=== PATIENT | female | born 1980 | race Caucasian/White ===

== ENCOUNTER 2017-07-06 07:52 | Inpatient (IN) | payer OTHER ==
[2017-06-23 13:03] VITALS: BMI 19.5
--- NOTE | 2017-06-27 14:03 | HP ---
Admitting History and Physical - Primary Care Physician PCP: Eliel Charles - Admission Chief Complaint: high risk for breast cancer History of Present Illness: Patient is a 36 yo female who is high risk for breast cancer secondary to family history of breast cancer and personal h/o BRCA 2 positive status. Patient had a normal mammo done 02/01/2017 and an MRI done 06/13/2017 which was wnl. Patient is now presenting for prophylactic mastectomy with reconstruction. History Source: Patient Limitations to Obtaining History: No Limitations - Past Medical History ...LMP: 05/28/17 ...: No - Past Surgical History Past Surgical History: Yes: Appendectomy - Smoking History Smoking history: Never smoked - Alcohol/Substance Use Hx Alcohol Use: No Home Medications - Allergies Allergies/Adverse Reactions: Allergies Allergy/AdvReac Type Severity Reaction Status Date / Time cefaclor [From Ceclor] Allergy Rash Verified 06/23/17 12:49 cephalexin [From Keflex] Allergy Rash Verified 06/23/17 12:49 Penicillins Allergy Rash Verified 06/23/17 12:49 medroxyprogesterone AdvReac Verified 06/27/17 14:12 [From Depo-Provera] - Home Medications Home Medications: Ambulatory Orders NK [No Known Home Medication] 06/23/17 Family Disease History - Family Disease History Family Disease History: CA: Grandparent (maternal-breast cancer ), Other: Mother (BRCA 2 positive) Other Family History: maternal greast aunts x 3-breast cancer Review of Systems - Review of Systems Constitutional: reports: No Symptoms Cardiovascular: reports: No Symptoms Respiratory: reports: No Symptoms Physical Examination Constitutional: Yes: Well Nourished Breast(s): Yes: Other (Symmetrical A cup breasts without suspicious masses or adenopathy noted bilaterally.) Problem List - Problems (1) Family history of breast cancer Code(s): Z80.3 - FAMILY HISTORY OF MALIGNANT NEOPLASM OF BREAST (2) BRCA gene mutation positive Code(s): Z15.01 - GENETIC SUSCEPTIBILITY TO MALIGNANT NEOPLASM OF BREAST; Z15.09 - GENETIC SUSCEPTIBILITY TO OTHER MALIGNANT NEOPLASM Assessment/Plan Plan: Bilateral mastectomy with implant reconstruction.
[2017-07-06] MEDS ORDERED: PROPOFOL 20 ML ONE ×11 (10:21→13:12)
[2017-07-06] MEDS ORDERED: SUCCINYLCHOLINE CHLORIDE 200 MG/10 ML VIAL ONE (10:21)
[2017-07-06] MEDS ORDERED: fentaNYL CITRATE 250 MCG/5 ML VIAL ONE (10:21)
[2017-07-06] MEDS ORDERED: ROCURONIUM BROMIDE 50 MG/5 ML VIAL ONE ×2 (10:21→12:41)
[2017-07-06] MEDS ORDERED: ePHEDrine SULFATE 50 MG/1 ML AMPULE ONE (10:21)
[2017-07-06] MEDS ORDERED: MIDAZOLAM HCL 2 MG/2 ML SINGLE DOSE VIAL ONE ×4 (10:22→10:23)
[2017-07-06] MEDS ORDERED: DEXAMETHASONE SOD PHOSPHATE/PF 10 MG/ML SDV ONE (10:23)
[2017-07-06] MEDS ORDERED: BUPIVACAINE HCL/PF 2.5 MG/ML - 30 ML VIAL IJ ONE (10:23)
[2017-07-06] MEDS ORDERED: HALOPERIDOL LACTATE 5 MG/ML ONE (10:24)
[2017-07-06] MEDS ORDERED: ONDANSETRON 4 MG/2 ML VIAL IVPUSH PRN ×2 (12:32→14:25)
[2017-07-06] MEDS ORDERED: ACETAMINOPHEN 325 MG TABLET (FP) PO PRN (12:32)
[2017-07-06] MEDS ORDERED: ZOLPIDEM TARTRATE 5 MG TABLET PO PRN (12:32)
[2017-07-06] MEDS ORDERED: NEOSTIGMINE METHYLSULFATE 0.5 MG/ML - 10 ML MDV ONE (13:48)
[2017-07-06] MEDS ORDERED: KETOROLAC TROMETHAMINE 30 MG/1 ML VIAL ONE (13:52)
[2017-07-06] MEDS ORDERED: GLYCOPYRROLATE 0.2 MG/1 ML VIAL ONE (13:53)
[2017-07-06] MEDS ORDERED: ONDANSETRON 4 MG/2 ML VIAL ONE (14:22)
[2017-07-06] MEDS ORDERED: oxyCODONE HCL 5 MG TABLET PO PRN ×2 (14:25)
[2017-07-06] MEDS ORDERED: PROMETHAZINE HCL 25 MG/1 ML VIAL IVPUSH PRN (14:25)
[2017-07-06] MEDS ORDERED: ACETAMINOPHEN 325 MG TABLET (FP) ONE (14:53)
[2017-07-06] MEDS ORDERED: diazePAM 2 MG TABLET ONE (14:53)
[2017-07-06] MEDS: ACETAMINOPHEN 325 MG TABLET (FP) PO SCH ×2 (14:55→22:21)
[2017-07-06] MEDS: diazePAM 2 MG TABLET PO SCH ×2 (14:55→22:21)
[2017-07-06] MEDS: DEXTROSE 5%-0.45% SALINE 1,000 ML IV SCH (15:59)
[2017-07-06] MEDS: LACTATED RINGERS SOLUTION 1,000 ML IV SCH (15:59)
--- NOTE | 2017-07-06 16:03 | OP ---
DATE OF OPERATION: 07/06/2017 PREOPERATIVE DIAGNOSES: High risk for breast cancer. BRCA2 positive. POSTOPERATIVE DIAGNOSES: High risk for breast cancer. BRCA2 positive. PROCEDURES: Bilateral nipple-sparing mastectomy, through an inframammary approach, with bilateral direct-implant reconstruction. ANESTHESIA: General endotracheal anesthesia. PRIMARY SURGEON: Maggie Charles MD STREET CLEANER: Liza Simons, physician showroom sales assistant PRIMARY SURGEON: For the bilateral direct implant reconstruction with AlloDerm was Maggie Fierro MD. COMPLICATIONS: There were no complications. Briefly, the patient is a 37-year-old, premenopausal, white female of [place] descent, with a family history with her maternal grandmother who from breast cancer in her 40s and three paternal great aunts with breast cancer. The patient's mother and the patient herself tested BRCA2 positive with a deletion GT mutation. She has been getting routine mammography and MRIs, which have been negative, and was seen in consultation regarding prophylactic risk-reduction mastectomy. She decided to go forward with the procedure. Was seen by Dr. Fierro for reconstruction. The patient was brought in for the procedure, on July 06, 2017. DESCRIPTION OF PROCEDURE: In the holding area, verification was made and informed consent was obtained. She was marked preoperatively by Dr. Fierro. The patient was then brought into the operating room and laid on the OR table in the supine position. Venodynes were placed on the lower extremities. She received a gram of vancomycin and clindamycin, prior to incision. She underwent general endotracheal anesthesia. Both breasts were sterilely prepped and draped in the usual fashion. She did receive a prepectoral nerve block for pain control postoperatively. Inframammary incisions were marked out bilaterally about 8 cm in length in the inframammary folds of both breasts. The left mastectomy was first performed. An incision was made, and the skin edges were everted, the breast was retracted inferiorly using Washburn clamps. The skin flap was raised using the Peak radiofrequency device superiorly to the level of the clavicle, and medially to the level of the sternum, laterally to the level of the latissimus, and inferiorly below the level of the inframammary fold. The breast was taken down off the pectoralis major muscle from [id number] and completely removed intact. It was oriented with a long lateral, short superior suture and weighed to allow for appropriate cosmetic result. A retroareolar biopsy was taken underneath the left nipple-areolar complex and sent for frozen section, did have some atypia, but no cancer, so the left nipple was spared. Hemostasis was achieved and the wound was copiously irrigated with warm sterile saline. The breast was placed in formalin and sent to Pathology as specimen. At this point, the right mastectomy was performed, again through an inframammary approach, 8 cm in length, symmetrical to the left incision. Again, the skin edges were everted and the breast was retracted inferiorly using Basilio clamps. The skin flap was raised using the Peak radiofrequency device superiorly to the level of the clavicle, and medially to the level of the sternum, laterally to the level of the latissimus, and inferiorly below the level of the inframammary fold. The breast was taken down off the pectoralis major muscle from [id number] and completely removed intact. It was oriented with a long lateral, short superior suture and weighed to allow for appropriate cosmetic result. Hemostasis was achieved using electrocautery and the wound was copiously irrigated with warm sterile saline. A right retroareolar biopsy was taken, sent for frozen section, came back negative, so the right nipple was spared, as well. At this point, Dr. Fierro became the primary surgeon and performed bilateral subpectoral direct-implant reconstruction with AlloDerm. Two Ronn drains were placed around each implant and brought out through separate stab incisions on the lateral skin flaps and secured in place using a 3-0 nylon. All wounds were closed by Plastic Surgery using interrupted 3-0 deep dermal PDS suture and a running 4-0 subcuticular Biosyn suture. Mastisol and Steri-Strips were applied over the wound. The Ronn drains were placed on TY self-bulb suction. We did use the SPY skin perfusion device at the end of the mastectomy, as well as at the end of the reconstruction, and she did have some mild decreased blood flow around the nipples bilaterally, but was adequate to save the nipples. All sponge and needle counts were correct at the end of the case and estimated blood loss was about 50 mL. She was hemodynamically stable throughout. The patient was extubated at the end of the case, and brought to the postanesthesia care unit in stable condition, and will be admitted postoperatively for pain management and wound management. MAGGIE CHARLES M.D. [id number]
[2017-07-06] MEDS ORDERED: PT OWN MED DRAWER 7, Y5N ONE (17:14)
[2017-07-06] MEDS: CLINDAMYCIN 300 MG PREMIX IVPB 300 MG/50 ML BAG IVPB SCH (17:32)
[2017-07-06] MEDS: oxyCODONE HCL 10 MG SUSTAINED ACTING TABLET PO SCH (22:21)
[2017-07-06] MEDS: GABAPENTIN 300 MG CAPSULE (FP) PO SCH (22:21)
[2017-07-06] MEDS: SENNOSIDES 8.6MG TABLET (FP) PO SCH (22:21)
[2017-07-07] MEDS: CLINDAMYCIN 300 MG PREMIX IVPB 300 MG/50 ML BAG IVPB SCH ×3 (02:13→17:39)
[2017-07-07] MEDS: ACETAMINOPHEN 325 MG TABLET (FP) PO SCH ×4 (05:00→21:14)
[2017-07-07] MEDS: diazePAM 2 MG TABLET PO SCH ×3 (06:25→22:23)
[2017-07-07 08:45] LABS: HEMATOCRIT 34.6 % (32.4-45.2); HEMOGLOBIN 12.1 GM/dl (10.7-15.3); MCH 32.4 pg (25.7-33.7); MCHC 35.1 g/dl (32.0-36.0); MEAN CELL VOLUME 92.3 fl (80-96); MEAN PLT VOLUME 10.3 fl (7.5-11.1); PLATELET COUNT 219 K/MM3 (134-434); RBC 3.75 M/mm3 (3.60-5.2); RDW 11.7 % (11.6-15.6); WHITE BLOOD COUNT 7.7 K/mm3 (4.0-10.8)
--- NOTE | 2017-07-07 08:59 | PN ---
Progress Note, Physician Chief Complaint: BRCA positive S/P bilateral nipple sparing total mastectomies with implant and alloderm reconstruction History of Present Illness: patient is eating and pain controlled with current regimen,ready for OOB this am, no nausea or vomiting - Current Medication List Current Medications: Active Medications Acetaminophen (Tylenol -) 650 mg PO Q6H [facility] Stop: 07/09/17 14:59 Last Admin: 07/07/17 05:00 Dose: 650 mg Diazepam (Valium -) 2 mg PO Q8H [facility] Last Admin: 07/07/17 06:25 Dose: 2 mg Gabapentin (Neurontin -) 300 mg PO BID [facility] Last Admin: 07/06/17 22:21 Dose: 300 mg Dextrose/Sodium Chloride (D5-1/2ns -) 1,000 mls @ 100 mls/hr IV ASDIR [facility] Last Admin: 07/06/17 15:59 Dose: Not Given Clindamycin Phosphate (Cleocin 300 Mg Premix Ivpb) 300 mg in 50 mls @ 100 mls/ hr IVPB Q8H-IV [facility] Last Admin: 07/07/17 02:13 Dose: 100 mls/hr Lactated Ringer's (Lactated Ringers Solution) 1,000 mls @ 75 mls/hr IV ASDIR [facility] Last Admin: 07/06/17 15:59 Dose: Not Given Ondansetron HCl (Zofran Injection) 4 mg IVPUSH Q6H PRN PRN Reason: NAUSEA AND/OR VOMITING Oxycodone HCl (Roxicodone -) 5 mg PO Q3H PRN PRN Reason: PAIN LEVEL 1-5 Oxycodone HCl (Roxicodone -) 10 mg PO Q3H PRN PRN Reason: PAIN LEVEL 6-10 Oxycodone HCl (Oxycontin -) 10 mg PO BID [facility] Stop: 07/09/17 14:26 Last Admin: 07/06/17 22:21 Dose: 10 mg Senna (Senna -) 1 tab PO BID [facility] Last Admin: 07/06/17 22:21 Dose: 1 tab Zolpidem Tartrate (Ambien -) 5 mg PO HS PRN PRN Reason: Insomnia - Objective Vital Signs: Vital Signs Temperature 98.6 F 07/07/17 06:00 Pulse Rate 86 07/07/17 06:00 Respiratory Rate 18 07/07/17 06:00 Blood Pressure 104/62 07/07/17 06:00 O2 Sat by Pulse Oximetry (%) 95 07/07/17 06:00 Constitutional: Yes: No Distress Breast(s): Yes: Other (bilateral skin flaps viable minimal echymosis incision intact no signs of infection prateek drains function well) Problem List - Problems (1) BRCA gene mutation positive Code(s): Z15.01 - GENETIC SUSCEPTIBILITY TO MALIGNANT NEOPLASM OF BREAST; Z15.09 - GENETIC SUSCEPTIBILITY TO OTHER MALIGNANT NEOPLASM Assessment/Plan continue IV antibiotic cont pain management plan spirometry SCD ready for discharge tomorrow cbc pending
[2017-07-07] MEDS ORDERED: PT OWN MED DRAWER 7, Y5N ONE (09:42)
[2017-07-07] MEDS: oxyCODONE HCL 10 MG SUSTAINED ACTING TABLET PO SCH ×2 (10:03→21:51)
[2017-07-07] MEDS: GABAPENTIN 300 MG CAPSULE (FP) PO SCH ×2 (10:03→21:51)
[2017-07-07] MEDS: SENNOSIDES 8.6MG TABLET (FP) PO SCH ×2 (10:03→21:51)
--- NOTE | 2017-07-07 11:01 | DS ---
Physical Examination Vital Signs: Vital Signs Temperature 98.6 F 07/07/17 06:00 Pulse Rate 86 07/07/17 06:00 Respiratory Rate 18 07/07/17 06:00 Blood Pressure 104/62 07/07/17 06:00 O2 Sat by Pulse Oximetry (%) 95 07/07/17 06:00 Constitutional: Yes: No Distress Breast(s): Yes: Other (flaps viable incision intact mild echymosis prateek drains functionng well) Labs: CBC, BMP 07/07/17 08:00 Discharge Summary Reason For Visit: GENETIC SUSCEPTIBILITY Current Active Problems BRCA gene mutation positive (Acute) Condition: Good - Instructions Diet, Activity, Other Instructions: Post Operative Instructions - [facility] We hope your recovery will be uneventful. For those of you who have been given general anesthesia, there is a possibility you might have some lightheadedness and possibly nausea. It is important that each patient, especially those who have had general anesthesia, follow these instructions, please: 1. Do NOT operate a motor vehicle for 24 hours. 2. Do NOT drink any alcoholic beverages for 24 hours. 3. Do NOT take any sedatives, narcotics, or tranquilizers for 24 hours unless specifically ordered by your surgeon. 4. Do NOT undertake any strenuous exercise or outside activity for 24 hours unless specifically permitted by your surgeon. 5. Eat light foods that are easy to digest. If you have any problems with nausea and vomiting, lie down and rest. If it continues, call your surgeon. 6. Call your surgeon AT ONCE if you have problems with: a. Bleeding b. Urinating c. Excessive pain or drainage d. Numbness If any problems occur, call your physician first. If you cannot reach him/her, call the Ambulatory Surgery Unit at [phone], or the Emergency Room at . Follow up with Drs. Charles / Yves in 7 days. Medication: Vicodin E-S OR Percocet 1-2 tablets every 4-6 hrs as needed for 5-7 days. Wound Care: Keep wound dry and clean for 48 hours. You may remove the dressing after 48 hours and may shower. Keep steri-strips in place until follow-up appointment No heavy lifting or strenuous activities. BREAST SURGERY INSTRUCTIONS Nic Charles M.D., KIT Charles M.D., FACS Ana Luisa Marinelli M.D., FACS 1. Please call the office at to make a follow up appointment with your surgeon. This number can be also used for any urgent issues you may have. 2. Call us immediately if any of the following occur: *Bleeding from the incision or drain site (a small amount is normal) *Fever or chills *Redness and worsening tenderness around the surgical site *Drainage of pus or fluid from the incision or drain site 3. You may change the surgical dressing two (2) days after your surgery, and may shower then. If you have drains, you may shower after they have been removed, until then take a sponge bath. 4. It is normal for there to be some bruising and tenderness around the surgical site, and the breast may also be firm in this area. 5. Please wear a comfortable bra (sports or surgical bra) all day and all night until your first follow-up visit with your surgeon. 6. The pain medicine you have been prescribed may make you constipated; make sure you drink plenty of water. You may use an over the counter laxative if needed. 7. You may resume your normal diet after surgery, although you may want to avoid rich foods for the first twenty-four (24) hours after surgery. Alcoholic drinks should be avoided while taking the prescribed pain medicine. 8. You may resume normal activities as long as there is no discomfort, but do not do upper body exercises until after your follow-up appointment. Do not lift anything heavier than a large phone book. You may resume driving once you have stopped taking the prescribed pain medicine and feel comfortable doing arm movements. No shower , Milk and record prateek output two to three times daily. Wear bra Referrals: Eliel Charles MD [Staff Physician] - Rob Fierro MD [Staff Physician] - Disposition: HOME - Home Medications Comprehensive Discharge Medication List: Ambulatory Orders Ciprofloxacin HCl [Cipro] 500 mg PO BID #20 tablet 07/07/17 Fluconazole [Diflucan] 150 mg PO ONCE #1 tablet 07/07/17 Oxycodone HCl/Acetaminophen [Percocet 5-325 mg Tablet] 1 - 2 tab PO Q6H PRN #30 tab MDD 6 07/07/17
--- NOTE | 2017-07-07 13:02 | PN ---
Progress Note (short form) - Note Progress Note: S: Pt. sitting, eating lunch without complaints. O: VAS 0/10 A/P: pod #1 s/p bilateral mastectomy with reconstruction 1. continue pain meds as needed
[2017-07-07] MEDS: LACTATED RINGERS SOLUTION 1,000 ML IV SCH (14:03)
[2017-07-07] MEDS: DEXTROSE 5%-0.45% SALINE 1,000 ML IV SCH (14:03)
[2017-07-08] MEDS: CLINDAMYCIN 300 MG PREMIX IVPB 300 MG/50 ML BAG IVPB SCH ×2 (02:39→09:46)
[2017-07-08] MEDS: ACETAMINOPHEN 325 MG TABLET (FP) PO SCH ×2 (02:41→08:42)
[2017-07-08] MEDS: diazePAM 2 MG TABLET PO SCH (06:52)
[2017-07-08 07:07] VITALS: BP 100/69; PULSE 75; TEMP 98
--- NOTE | 2017-07-08 09:43 | PN ---
Progress Note, Physician Chief Complaint: High risk for breast cancer BRCA2+ History of Present Illness: The patient was found to be BRCA2+ and decided on undergoing bilateral prophylactic mastectomies which was performed on 07/06/17. She was admitted postoperatively for postoperative pain control and wound management. - Current Medication List Current Medications: Active Medications Acetaminophen (Tylenol -) 650 mg PO Q6H [facility] Stop: 07/09/17 14:59 Last Admin: 07/08/17 08:42 Dose: 650 mg Diazepam (Valium -) 2 mg PO Q8H [facility] Last Admin: 07/08/17 06:52 Dose: 2 mg Gabapentin (Neurontin -) 300 mg PO BID [facility] Last Admin: 07/07/17 21:51 Dose: 300 mg Dextrose/Sodium Chloride (D5-1/2ns -) 1,000 mls @ 100 mls/hr IV ASDIR [facility] Last Admin: 07/07/17 14:03 Dose: Not Given Clindamycin Phosphate (Cleocin 300 Mg Premix Ivpb) 300 mg in 50 mls @ 100 mls/ hr IVPB Q8H-IV [facility] Last Admin: 07/08/17 02:39 Dose: 100 mls/hr Lactated Ringer's (Lactated Ringers Solution) 1,000 mls @ 75 mls/hr IV ASDIR [facility] Last Admin: 07/07/17 14:03 Dose: Not Given Ondansetron HCl (Zofran Injection) 4 mg IVPUSH Q6H PRN PRN Reason: NAUSEA AND/OR VOMITING Oxycodone HCl (Roxicodone -) 5 mg PO Q3H PRN PRN Reason: PAIN LEVEL 1-5 Last Admin: 07/08/17 02:56 Dose: 5 mg Oxycodone HCl (Roxicodone -) 10 mg PO Q3H PRN PRN Reason: PAIN LEVEL 6-10 Oxycodone HCl (Oxycontin -) 10 mg PO BID [facility] Stop: 07/09/17 14:26 Last Admin: 07/07/17 21:51 Dose: 10 mg Senna (Senna -) 1 tab PO BID [facility] Last Admin: 07/07/17 21:51 Dose: 1 tab Zolpidem Tartrate (Ambien -) 5 mg PO HS PRN PRN Reason: Insomnia - Objective Vital Signs: Vital Signs Temperature 98.0 F 07/08/17 06:00 Pulse Rate 75 01/20/18 06:00 Respiratory Rate 19 07/08/17 06:00 Blood Pressure 100/69 07/08/17 06:00 O2 Sat by Pulse Oximetry (%) 98 07/07/17 22:15 Constitutional: Yes: Well Nourished, No Distress, Calm Eyes: Yes: WNL HENT: Yes: Atraumatic, Normocephalic Neck: Yes: WNL Respiratory: Yes: Regular, CTA Bilaterally Gastrointestinal: Yes: Normal Bowel Sounds, Soft ...Rectal Exam: Yes: Deferred Genitourinary: Yes: WNL Breast(s): Yes: Other (Mastecomy wounds clean, dry, and intact. Drains functioning well. Skin flaps warm and viable.) Musculoskeletal: Yes: WNL Extremities: Yes: WNL Wound/Incision: Yes: Clean/Dry, Well Approximated Neurological: Yes: Alert, Oriented ...Motor Strength: WNL Psychiatric: Yes: WNL Labs: CBC, BMP 07/07/17 08:00 Problem List - Problems (1) BRCA gene mutation positive Assessment/Plan: The patient is doing well POD#2 s/p bilateral prophylactic nipple sparing mastectomies with direct to implant reconstruction with alloderm. Her wounds are clean, dry, and intact and skin flaps viable with functioning drains. She has good pain control and is stable for discharge today. Home on cipro antibiotics and percocet for pain. Follow up with Drs. Charles and Vadim in 1 week. Code(s): Z15.01 - GENETIC SUSCEPTIBILITY TO MALIGNANT NEOPLASM OF BREAST; Z15.09 - GENETIC SUSCEPTIBILITY TO OTHER MALIGNANT NEOPLASM
[2017-07-08] MEDS: GABAPENTIN 300 MG CAPSULE (FP) PO SCH (09:45)
[2017-07-08] MEDS: oxyCODONE HCL 10 MG SUSTAINED ACTING TABLET PO SCH (09:45)
[2017-07-08] MEDS: SENNOSIDES 8.6MG TABLET (FP) PO SCH (09:45)
--- NOTE | 2017-07-08 15:56 | OP ---
DATE OF OPERATION: 07/06/2017 SURGEON: Maggie Fierro MD PREOPERATIVE DIAGNOSIS: Bilateral acquired chest wall deformity status post bilateral mastectomy. PROCEDURE: 1. Right immediate breast reconstruction utilizing immediate insertion of silicone breast implant and AlloDerm reconstruction. 2. Left immediate breast reconstruction utilizing immediate insertion of silicone breast implant and AlloDerm reconstruction. 3. Intravenous injection of indocyanine green dye and intraoperative diagnostic evaluation of non-coronary intraoperative fluorescein vascular angiography x 2. SURGEON: Dr. Mary Anne Fierro ANESTHESIA: GENERAL OPERATIVE PROCEDURE IN DETAIL: The patient was taken to the operating room. After induction of general anesthesia in the supine position, both arms were extended and padded. Venodyne boots were placed. The entire chest wall was painted with ChloraPrep solution over its entire extent, and sterile drapes were placed in the usual fashion. The markings, which had been made in the standing position preoperatively, were reoutlined with the patient's knowledge. Time-out procedure was performed. Attention was turned by Dr. Charles to the mastectomies. Bilateral inframammary incisions were made and Dr. Charles performed mastectomies. This will be dictated under separate cover. Upon completion of the mastectomies, the wounds were copiously irrigated and attention was turned to the right breast. A subpectoral dissection was begun on the right breast, superiorly from the second rib, medially to the sternal fibers, and down to the inframammary fold, elevating the pectoralis major muscle from its insertion. At this point, an 8.0 x 16.0 sheet of AlloDerm was brought into the field and sutured superiorly along the pectoralis major muscle after rehydration. This was carried along the lateral mammary fold and down the side of the breast reconstruction. At this point, she had implants placed of Natrelle Inspira SoftTouch breast implants, style SSF 415 mL volume bilaterally. The left breast tissue removed was 121 gm, and the right breast approximately 141 gm. This implant was placed and then sutured with 3-0 Vicryl suture continued along the inframammary fold, completely covering the implant itself. The exact same procedure was carried out symmetrically on the opposite breast, also placing a Natrelle Inspira SoftTouch breast implants, style SSF 415 mL volume implant in the same subpectoral pocket. Good symmetry was seen in the sitting position. After the implants were in place, the patient was injected with 10 mL of Isocyanide green dye and the Spy imaging system was brought into the field. She had Spy intraoperative angiogram which showed slight decreased blood flow to the left nipple-areolar complex intraoperatively. The skin flowed to the right and left breasts and the nipple areolar complex, and the entire skin flaps were evaluated and seen to be viable with good blood flow. She had AlloDerm 2 sheets contour medium perforated AlloDerm placed bilaterally. Two Ulises-Butler drains were brought out through separate stab wounds laterally. The Smart Infuser pump catheter was inserted medially and into the subpectoral position. Both wounds were closed symmetrically using 3-0 PDS suture on the deep tissue, 3-0 in a deep dermal fashion, and 4-0 in a subcuticular fashion. Both wounds were dressed sterilely with Mastisol and Steri-Strips with a surgical bra and a compression strap. The patient tolerated the procedure well. She was awakened, extubated and transferred to the recovery room in satisfactory condition. The executive assistant to president was present during the entire portion of the operation and closure. MAGGIE FIERRO M.D. [id number]
--- NOTE | 2017-07-11 16:10 | PATH ---
Surgical Pathology Report Patient Name: RANGEL THOMAS Med. Rec. #: [id number] /Age/Gender: 1980 (Age: 37) / F Account: [id number] Location: [facility] MED[facility] Taken: 07/06/2017 Received: 07/06/2017 Reported: 07/11/2017 Physicians: Eliel Charles M.D. Specimen(s) Received A: RIGHT RETROAREOLAR BIOPSY. FS B: LEFT RETROAREOLAR BIOPSY. FS C: RIGHT MASTECTOMY D: LEFT MASTECTOMY Clinical History Bilateral prophylactic mastectomy, BRCA+ Intraoperative Consult Diagnosis A. Right retroareolar biopsy, frozen section: Negative for malignancy. B. Left retroareolar biopsy, frozen section: Focal atypical ductal hyperplasia (ADH). Dulce Tavera M.D., 07/06/17. Final Diagnosis A. RETROAREOLA, RIGHT, BIOPSY (FS): BENIGN BREAST TISSUE. NEGATIVE FOR MALIGNANCY. B. RETROAREOLA, LEFT, BIOPSY (FS): BENIGN BREAST TISSUE. (SEE NOTE) Note: No atypia/atypical ductal hyperplasia is identified on permanent sections. C. BREAST, RIGHT, NIPPLE-SPARING MASTECTOMY: BENIGN BREAST TISSUE. D. BREAST, LEFT, NIPPLE-SPARING MASTECTOMY: BENIGN BREAST TISSUE SHOWING PROLIFERATIVE FIBROCYSTIC CHANGES. Electronically Signed Maria A Tavera M.D. Gross Description A. Received fresh for frozen section labeled "right retroareolar biopsy," is a 0.6 x 0.4 x 0.2 cm portion of red and pink soft tissue. A frozen section is performed on the tissue. The frozen section residue is entirely submitted in one cassette. B. Received fresh for frozen section labeled "left retroareolar biopsy," is a 0.5 x 0.4 x 0.2 cm portion of red and pink soft tissue. A frozen section is performed on the tissue. The frozen section residue is entirely submitted in one cassette. C. Received in formalin, labeled "right mastectomy 141 g," is a 13.0 x 11.0 x 1.6 cm. right mastectomy specimen with a short suture marking the superior aspect and a long suture marking the lateral aspect of the specimen, per the surgeon. There is no skin or nipple present. The deep margin is inked black and the anterior soft tissue margin is inked blue. The specimen is serially sectioned from lateral to medial. Sectioning reveals abundant dense, white, firm fibrous tissue. Secondary School Teacher sections are submitted in 14 cassettes as follows: 1-3-upper outer quadrant; 4-6-lower outer quadrant; 7-9-upper inner quadrant; 10-12-lower inner quadrant; 13-anterior soft tissue margin; 14-deep margin. D. Received in formalin, labeled "left mastectomy 121 g," is a 10.8 x 9.0 x 2.8 cm. left mastectomy specimen with a short suture marking the superior aspect and a long suture marking the lateral aspect of the specimen, per the surgeon. There is no skin or nipple present. The deep margin is inked black and the anterior soft tissue margin is inked blue. The specimen is serially sectioned from medial to lateral. Sectioning reveals abundant dense, white, firm fibrous tissue. Secondary School Teacher sections are submitted in 15 cassettes as follows: 1-4-upper outer quadrant; 5-7-lower outer quadrant; 8-10-upper inner quadrant; 11-13-lower inner quadrant; 14-anterior soft tissue margin; 15-deep margin. Time to formalin fixation: 40 minutes Total formalin fixation time: Approximately 34 hours. 07/07/2017 [facility]07/07/2017
== END 2017-07-08 12:30 | disposition home or self-care (01) | DRG 585 ==
LOC: FM/S 07:52 → EDBD 09:30 → FM/S 15:28
PROVIDERS: ADMIT Surgery Surgical Oncology; ATTEND Surgery Surgical Oncology
PROC: 0HTV0ZZ Resection of Bilateral Breast, Open Approach (ICD-10-PCS; principal; 2017-07-06 11:22)
PROC: 0HUV0JZ Supplement Bilateral Breast with Synthetic Substitute, Open Approach (ICD-10-PCS; 2017-07-06 11:22)
DX: Z40.01 Encounter for prophylactic removal of breast (principal); Z15.01 Genetic susceptibility to malignant neoplasm of breast; M95.4 Acquired deformity of chest and rib
CPT/HCPCS: 36415; 84703; 85027; 94010; 94760

== ENCOUNTER 2020-02-06 10:56 | Day surgery (SDC) | payer OTHER ==
[2020-02-03 12:05] VITALS: BMI 19.5
[2020-02-06] MEDS ORDERED: BUPIVACAINE HCL/PF 0.25% (2.5MG/ML) 10 ML VIAL ONE (11:39)
[2020-02-06] MEDS ORDERED: SODIUM CHLORIDE 0.9% P/F 10 ML VIAL IJ ONE (11:39)
[2020-02-06] MEDS ORDERED: GENTAMICIN SO4 80 MG/2 ML VIAL ONE ×2 (11:42→12:51)
[2020-02-06] MEDS ORDERED: ceFAZolin SODIUM 1 GM VIAL ONE (11:42)
[2020-02-06] MEDS ORDERED: LIDOCAINE HCL/PF 2% SDV 5ML VIAL ONE ×2 (11:57→12:26)
[2020-02-06] MEDS ORDERED: PROPOFOL 20 ML ONE ×5 (11:57→12:24)
[2020-02-06] MEDS ORDERED: EPHEDRINE SULFATE/0.9% NACL/PF 50 MG/10 ML SYRINGE NR ONE (11:58)
[2020-02-06] MEDS ORDERED: ROCURONIUM BROMIDE 50 MG/5 ML SYRINGE ONE (11:58)
[2020-02-06] MEDS ORDERED: SUCCINYLCHOLINE CHLORIDE 200 MG/10 ML SYRINGE ONE (11:58)
[2020-02-06] MEDS ORDERED: BUPIVACAINE LIPOSOME/PF (EXPAREL) 266 MG/20 ML VIAL ONE (12:09)
[2020-02-06] MEDS ORDERED: HALOPERIDOL LACTATE 5 MG/ML ONE (12:23)
[2020-02-06] MEDS ORDERED: MIDAZOLAM HCL 2 MG/2 ML SINGLE DOSE VIAL ONE (12:24)
[2020-02-06] MEDS ORDERED: fentaNYL CITRATE 250 MCG/5 ML VIAL ONE (12:24)
[2020-02-06] MEDS ORDERED: VANCOMYCIN 1,000 MG VIAL (RESTRICTED TO ID ONLY) ONE (12:26)
[2020-02-06] MEDS ORDERED: LIDOCAINE 1%/EPI 1:100000 (20 ML MULTI DOSE VIAL) ONE ×2 (12:52→12:53)
[2020-02-06] MEDS ORDERED: BACITRACIN 15 GM TUBE TOPICAL OINTMENT ONE (12:56)
[2020-02-06] MEDS ORDERED: NEOSTIGMINE METHYLSULFATE 0.5 MG/ML - 10 ML MDV ONE (14:08)
[2020-02-06] MEDS ORDERED: PROMETHAZINE HCL 25 MG/1 ML VIAL IVPUSH PRN (14:29)
[2020-02-06] MEDS ORDERED: ONDANSETRON 4 MG/2 ML VIAL IVPUSH PRN (14:29)
[2020-02-06] MEDS ORDERED: oxyCODONE HCL 5 MG TABLET PO PRN ×2 (14:29)
--- NOTE | 2020-02-06 14:31 | OP ---
Operative Note - Note: Operative Date: 02/06/20 Pre-Operative Diagnosis: left breast capsular contracture post mastectomy Operation: Reconstruction of left breast with subcutaneous tissue transfer. Left breast capsulectomy. Placement of Alloderm left breast. Exchange left breast implant for contracture Implants: New SSF-415 cc left Post-Operative Diagnosis: Same as Pre-op Surgeon: Rob Fierro [employer] Guid[employer] Counselor: Gasper Gonzáles Anesthesiologist/SAFETY ASSOCIATE: Emanuel Null Anesthesia: General Specimens Removed: left breast capsule. Implant Estimated Blood Loss (mls): 20
[2020-02-06 15:03] VITALS: TEMP 97.6
[2020-02-06] MEDS ORDERED: ACETAMINOPHEN 325 MG TABLET (FP) ONE (16:54)
[2020-02-06 17:46] VITALS: BP 112/64; PULSE 81
--- NOTE | 2020-02-10 14:22 | PATH ---
Surgical Pathology Report Patient Name: ARNGEL THOMAS Med. Rec. #: [id number] /Age/Gender: 1980 (Age: 39) / F Account: [id number] [facility] Taken: 02/06/2020 Received: 02/06/2020 Reported: 02/10/2020 Physicians: Rob Fierro Specimen(s) Received A: LEFT BREAST CAPSULE B: LEFT BREAST IMPLANT Clinical History Breast cancer Final Diagnosis A. LEFT BREAST CAPSULE, CAPSULECTOMY: FIBROUS CAPSULE WITH CHRONIC INFLAMMATION AND REACTIVE CHANGE. B. LEFT BREAST IMPLANT, REMOVAL: CONSISTENT WITH BREAST IMPLANT. GROSS EXAMINATION ONLY. Electronically Signed Dorothea Rosas M.D. Gross Description A. Received in formalin labeled "left breast capsule," are 2 coleman-tillman, irregular portions of fibrous tissue measuring 5.0 x 1.6 x 0.3 cm and 7.5 x 2.4 x 0.3 cm, consistent with portions of fibrous capsule. No discrete masses are identified. Railroad Surveyor sections are submitted in one cassette. B. Received fresh labeled "left breast implant," is a 12.5 cm in diameter x 4 cm in depth clear, rubbery, intact breast implant. No soft tissue is present. No sections are submitted, gross only. 02/07/2020 [place]02/07/2020
--- NOTE | 2020-02-11 18:16 | OP ---
DATE OF OPERATION: 02/06/2020 SURGEON: Eliel Fierro MD. CO-SURGEON: Gasper Gonzáles MD. PREOPERATIVE DIAGNOSIS: 1. Left breast deformity and mechanical complication of left breast implant. 2. Left breast capsular contracture with malposition. POSTOPERATIVE DIAGNOSIS: 1. Left breast deformity and mechanical complication of left breast implant. 2. Left breast capsular contracture with malposition. OPERATIVE PROCEDURE: 1. Reconstruction of left breast with other technique. 2. Capsulectomy removal and replacement of left breast implant for mechanical complication. 3. Reconstruction of chest wall. 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 This past July of 2019, she noticed a flu-like illness and then also noticed that her breast changed suddenly in the month of July. She has been treated locally with medication which was unrelieved of pain, distortion, and contracture. The patient was brought to the operating room, and after having multiple discussions regarding the risks and benefits of surgery with reconstruction of other technique and exchange of the implant for capsular contracture. She also had placement of acellular dermal matrix with replacement of the capsule after removal. OPERATIVE PROCEDURE IN DETAIL: Patient was taken to the operating room, and after induction of general anesthesia in the supine position, both arms were extended and padded, Venodyne boots were placed. At this time timeout was attended to, and the operation began. Surgery was performed in conjunction with Dr. Gasper Gonzáles as co-surgeon, requiring 2 surgeons to facilitate the complex procedure with reconstruction of other technique and facilitating the operative timing. At this point, attention was turned to the left breast. The mastectomy scar was injected with 1% local lidocaine with 1:100,000 epinephrine and then after allowing topical anesthesia and hemostasis, an incision was made down through the mastectomy scar demonstrating the high-riding contracted painful left breast position. Once this was accomplished, the attention was turned to the thickened capsule on the lower pole. After dissection through the subcutaneous tissue, the capsule was encountered and showed significant distortion, elevation of the position, and thickening. A capsulectomy was then performed on the lower pole of the breast extending up to the area of the pectoralis major muscle, excising portion of thickened capsule. The implant was then removed and sent for pathologic diagnosis, and the capsule was excised and incised in order to release the contracture. Attention was then turned to the abdominal wall. Incision was made down through skin and subcutaneous tissue, through subcutaneous tissue down to underlying deep musculature of the deep lateral portions of the thigh and abdominal wall. Tissue was then harvested symmetrically from the left and right thighs for removal of reconstructed volume tissue for replacement. Once this dissection was carried down to the musculature and tissue harvested, it was transferred to the back table, washed, cleansed, and prepared. Attention was then turned back to the breast itself. An implant of the same volume of 415 mL was placed back into the pocket after modification and expansion to release the contracture. At this point, a sheet of AlloDerm medium contour perforated material was brought onto the field, cleansed 3 times with triple antibiotic solution and rehydrated. In sterile fashion, this was then inserted into the lower pole of the breast from the reconstructed area at the pectoralis major muscle junction down to the inframammary fold. Multiple sutures were placed with 3-0 PDS suture in interrupted fashion, fashioning a new reconstructed lower pole. Once the material was in position, a new implant was placed into the sub-ADM pocket and sutured into position. The implant was placed using the Donald funnel with a no-touch technique. The tissue, which had been previously harvested, was transferred into the area between the capsule laterally and medially in order to prevent distortion and placed into the subcutaneous space for alleviation of the capsular contracture. Once this was accomplished, the wounds were closed with interrupted suture. Multiple washings with both Betadine and triple antibiotic solution were carried out. The wound was closed in layers using 3-0 PDS suture in the deep tissue, 3-0 in the deep dermal fashion, and 4-0 Biosyn in a subcuticular fashion. Good shape and contour was seen with the patient in the sitting position, and she was dressed thoroughly with Dermabond, Steri-Strips, and a compressive dressing, and transferred to the recovery room in satisfactory condition. ELIEL FIERRO M.D. [id number]
--- NOTE | 2020-02-12 13:01 | OP ---
DATE OF OPERATION: 02/06/2020 PREOPERATIVE DIAGNOSES: 1. 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 2. Acquired absence of bilateral breasts. 3. Deformity of reconstructed left breast. POSTOPERATIVE DIAGNOSES: 1. 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 2. Acquired absence of bilateral breasts. 3. Deformity of reconstructed left breast. PROCEDURE: 1. Removal of left breast implant with open periprosthetic capsulectomy. 2. Insertion of left breast implant (Allergan SSF-415). 3. Subcutaneous tissue transfer from bilateral lateral thighs to left breast. 4. AlloDerm acellular dermal matrix graft to left breast lower pole. ATTENDING SURGEON: Gasper Ewing MD CO-SURGEON: Mary Anne Fierro MD ANESTHESIA: General endotracheal. ESTIMATED BLOOD LOSS: 10 mL SPECIMEN: Left breast capsule to Pathology. DRAINS: None. COMPLICATIONS: None. CONDITION: Stable to recovery room, extubated. INDICATIONS: The patient is a 39-year-old female with a history of bilateral nipple-sparing mastectomies and implant-based reconstruction. She now presents with a left breast capsular contracture which has progressed and become quite painful and disfiguring. The patient is, therefore, indicated for a capsulectomy of the left breast with implant exchange. In addition, subcutaneous tissue transfer will be performed. The risks, benefits and alternatives of the surgery were discussed with the patient preoperatively in detail and all questions were answered. The risks include but are not limited to bleeding, infection, pain, need for revision or further surgery, residual breast deformity, residual breast asymmetry, damage to neighboring structures including nerves, arteries, veins and tendons. The patient understands these risks and has elected to proceed with surgery. PROCEDURE: After proper identification and marking of the patient in the preoperative holding area, the patient was transported to the operating room and placed supine on the table. While noninvasive anesthesia monitors were applied, intravenous access was established. General anesthesia was administered and the patient was intubated without difficulty. SCDs were applied to bilateral lower extremities. Intravenous antibiotics were then given. At this point the patient's bilateral breasts as well as abdomen, flank and lateral thighs were prepped and draped in the usual sterile fashion. After a timeout was performed, Dr. Fierro and Dee Dee began the reconstruction working independently as co-surgeons with separate instrument setups. Attention was first turned towards bilateral lateral thighs where stab incisions were made and the subcutaneous tissue of the lateral thighs was infiltrated with standard tumescent solution. A total of 500 mL of standard tumescent solution was infiltrated. Once an adequate amount of time was given for this to take effect, the Emerson bucket-handled cannula was used to harvest the subcutaneous tissue from bilateral lateral thighs. It was collected into 10 mL syringes and was then placed over sterile Telfa pads and the isolated adipocytes were filtered and then loaded into 10 mL syringes in preparation for subcutaneous tissue transfer. Attention was turned towards the left breast where the previous inframammary fold scar was incised with a No. 15 blade. Dissection through the full thickness of the subcutaneous tissue was performed with electrocautery until the contracted underlying breast capsule was visualized. The breast capsule was incised and the underlying breast implant was removed intact and passed off the field to Pathology. At this point examination of the breast capsule revealed thickening of the inferior capsule. At this point an open periprosthetic capsulectomy was performed with electrocautery in order to remove all areas of thickened capsule. The resected capsule was passed off the field to be sent to Pathology. Once this was completed, the left breast pocket was irrigated and hemostasis was ensured. Next, a piece of AlloDerm thick acellular dermal matrix graft was opened. It was bathed in 2 saline baths for 5 minutes each followed by triple-antibiotic irrigation. It was then brought up to the left breast pocket where it was placed dermis side up. The acellular dermal matrix graft was then secured to the inferior edge of the breast capsule on the mastectomy skin flap using a 3-0 PDS suture in a simple interrupted fashion. Once this was completed, the left breast pocket was again irrigated, this time with triple-antibiotic irrigation followed by a dilute Betadine solution. Next, gloves were changed and an Allergan 415 mL soft touch smooth round implant was opened. It was placed in a Donald funnel and then was inserted into the left breast pocket. Once proper positioning and orientation of the implant was confirmed, the acellular dermal matrix graft was draped over the inferior edge of the breast implant. Redundant dermal matrix graft was trimmed as necessary and the dermal matrix graft was then inset to the chest wall using a 3-0 PDS suture in a simple interrupted fashion. Next, the inframammary fold incision was closed in layers using a 3-0 PDS in a buried deep dermal fashion followed by a 3-0 V-Loc in a running subcuticular fashion. The harvested subcutaneous tissue was then transferred to the left breast using a modified Emerson technique. Once the subcutaneous tissue transfer was completed, all incisions were cleansed and dressed with Dermabond followed by Steri-Strips and the patient was placed into a soft surgical bra with care taken to ensure adequate padding with fluffs and ABD pads. The patient was this point was full awakened and extubated without incident, and transferred to recovery room in stable condition. GASPER EWING M.D. [id number]
== END 2020-02-06 17:30 | disposition home or self-care (01) ==
LOC: FASU 10:56
PROVIDERS: ATTEND Plastic Surgery
PROC: 0HRU07Z Replacement of Left Breast with Autologous Tissue Substitute, Open Approach (ICD-10-PCS; 2020-02-06)
PROC: 0HUU0JZ Supplement Left Breast with Synthetic Substitute, Open Approach (ICD-10-PCS; 2020-02-06)
PROC: 0HPU0JZ Removal of Synthetic Substitute from Left Breast, Open Approach (ICD-10-PCS; principal; 2020-02-06 13:04)
PROC: 0HRU0JZ Replacement of Left Breast with Synthetic Substitute, Open Approach (ICD-10-PCS; 2020-02-06 13:04)
DX: T85.41XA Breakdown (mechanical) of breast prosthesis and implant, initial encounter (principal); T85.44XA Capsular contracture of breast implant, initial encounter; T85.42XA Displacement of breast prosthesis and implant, initial encounter; N65.0 Deformity of reconstructed breast; Y82.8 Other medical devices associated with adverse incidents; Y83.8 Other surgical procedures as the cause of abnormal reaction of the patient, or of later complication, without mention of misadventure at the time of the procedure; Y92.9 Unspecified place or not applicable
CPT/HCPCS: 84703; 88300-TC; 88304-TC; 94760